=== PATIENT | female | born 1990 | race Caucasian/White ===

== ENCOUNTER 2022-04-28 23:21 | Emergency (ER) | payer OTHER ==
[~2022-04-28] VITALS: Ht 175.2 cm; Wt 123.4 kg
[2022-04-29 00:46] LABS: BILIRUBIN Negative (Negative); BLOOD 3+ (Negative); CLARITY Clear (Clear); COLOR Red (Yellow); GLUCOSE Negative (Negative); KETONE Negative (Negative); LEUKO ESTERASE 3+ (Negative); NITRITE Negative (Negative); PH 6.5 (4.5-8.0); UROBILINOGEN 0.2 E.U./dl (0.0-1.0)
[2022-04-29 01:21] LABS: RBC 41-50 rbc/hpf (0-2); WBC 31-40 wbc/hpf (0-5)
[2022-04-29 01:22] LABS: BACTERIA 1+
[2022-04-29] MEDS ORDERED: CIPRO500 MG PO (03:39)
== END 2022-04-29 04:01 | disposition home or self-care (01) ==
LOC: ED 23:21
PROVIDERS: Internal Medicine
DX: N39.0 Urinary tract infection, site not specified (principal)

== ENCOUNTER → 2022-05-25 | Outpatient (CLI) | payer OTHER ==
[~2022-05-25] MED LIST: CIPRO500 MG PO
== END | disposition home or self-care (01) ==
LOC: ORTHO 08:34
PROVIDERS: ATTEND Orthopaedic Surgery
DX: M19.071 Primary osteoarthritis, right ankle and foot (principal); M85.871 Other specified disorders of bone density and structure, right ankle and foot; M77.31 Calcaneal spur, right foot

== ENCOUNTER → 2022-07-07 | Day surgery (SDC) | payer OTHER ==
[2022-07-02 15:31] LABS: BASO # 0.1 10*3/uL (0.0-0.1); BASO % 1.3 % (0.0-1.0); EOS # 0.1 10*3/uL (0.0-0.4); EOS % 3.4 % (1.0-4.0); HEMATOCRIT 40.5 % (37.0-47.0); LYMPH % 25.5 % (27.0-41.0); MEAN CELL VOLUME 83.3 fl (81.0-99.0); MEAN CORPUSCULAR HGB 26.1 pg (27.0-31.0); MEAN CORPUSCULAR HGB CONC 31.4 g/dl (33.0-37.0); MEAN PLATELET VOLUME 11.2 fl (9.6-12.3); MONO # 0.4 10*3/uL (0.1-1.0); NEUT # 2.2 10*3/uL (2.3-7.9); NEUT % 58.5 % (47.0-73.0); PLATELET COUNT AUTOMATED 259 10*3/uL (130-400); RED BLOOD COUNT 4.86 10*6/uL (4.10-5.10); RED CELL DISTRI WIDTH 15.3 % (0-14.5); WHITE BLOOD COUNT 3.8 10*3/uL (4.8-10.8)
[~2022-07-07] VITALS: Ht 152.4 cm
[~2022-07-07] MED LIST changes: +FERRETTS325 M1 PO; +HYDROCODONE-AC1 EAC1 PO
[2022-07-07 07:30] VITALS: BP 128/89
[2022-07-07 11:38] VITALS: BP 136/84
[2022-07-07 11:50] VITALS: BP 125/78
[2022-07-07 12:05] VITALS: BP 130/80
[2022-07-07 12:19] VITALS: BP 139/75
[2022-07-07 12:38] VITALS: BP 131/76
== END | disposition home or self-care (01) ==
LOC: SDC 07-02 14:00
PROVIDERS: ATTEND Orthopaedic Surgery
DX: M65.271 Calcific tendinitis, right ankle and foot (principal); M92.61 Juvenile osteochondrosis of tarsus, right ankle

== ENCOUNTER → 2022-10-09 | Outpatient (CLI) | payer OTHER | END | disposition home or self-care (01) | LOC: ORTHO 00:17 | PROVIDERS: ATTEND Orthopaedic Surgery | DX: M65.271 Calcific tendinitis, right ankle and foot (principal) ==

== ENCOUNTER 2023-03-30 17:44 | Emergency (ER) | payer OTHER ==
[~2023-03-30] VITALS: Ht 175.2 cm; Wt 115.2 kg
[2023-03-30] MEDS ORDERED: PREDNISONE50 MG PO (19:35)
== END 2023-03-30 20:01 | disposition home or self-care (01) ==
LOC: ED 17:44
DX: T63.441A Toxic effect of venom of bees, accidental (unintentional), initial encounter (principal); F17.200 Nicotine dependence, unspecified, uncomplicated; Y92.89 Other specified places as the place of occurrence of the external cause

== ENCOUNTER → 2023-04-08 | Outpatient (CLI) | payer OTHER ==
[~2023-04-08] MED LIST changes: +PREDNISONE50 MG PO
== END | disposition home or self-care (01) ==
LOC: US 09:30
PROVIDERS: ATTEND Nurse Practitioner Women's Health
DX: Z30.431 Encounter for routine checking of intrauterine contraceptive device (principal); N92.0 Excessive and frequent menstruation with regular cycle; N94.6 Dysmenorrhea, unspecified; N83.201 Unspecified ovarian cyst, right side

== ENCOUNTER 2023-11-08 23:28 | Emergency (ER) | payer OTHER ==
[~2023-11-08] VITALS: Ht 175.2 cm; Wt 108.9 kg
[2023-11-08] MEDS ORDERED: ESCITALOPRAM OX10 MG PO (23:55)
[2023-11-08] MEDS ORDERED: Acetaminophen/Hydrocodone 5 MG/325 MG TABLET PO ONE (23:55)
[2023-11-08] MEDS ORDERED: PHENTERMINE H37.5 M1 PO (23:55)
== END 2023-11-09 01:11 | disposition home or self-care (01) ==
LOC: ED 23:28
DX: S92.511A Displaced fracture of proximal phalanx of right lesser toe(s), initial encounter for closed fracture (principal); Z79.899 Other long term (current) drug therapy; W01.0XXA Fall on same level from slipping, tripping and stumbling without subsequent striking against object, initial encounter; Y93.89 Activity, other specified; Y92.89 Other specified places as the place of occurrence of the external cause; Y99.8 Other external cause status

== ENCOUNTER → 2023-12-03 | Outpatient (CLI) | payer OTHER ==
[~2023-12-03] MED LIST changes: +ESCITALOPRAM OX10 MG PO; +PHENTERMINE H37.5 M1 PO
== END | disposition home or self-care (01) ==
LOC: RAD 10:43
PROVIDERS: ATTEND Orthopaedic Surgery
DX: S92.511D Displaced fracture of proximal phalanx of right lesser toe(s), subsequent encounter for fracture with routine healing (principal); X58.XXXD Exposure to other specified factors, subsequent encounter